=== PATIENT | female | born 1980 | race Caucasian/White ===

== ENCOUNTER 2016-06-04 09:38 | Day surgery (SDC) | payer BC ==
[~2016-06-04 09:38] MED LIST: LEXAPRO10 M2 PO; MOTRIN IB200 M1 PO; MULTIVITAMINS1 EAC6 PO; SYNTHROID150 MC1 PO
--- NOTE | 2016-06-04 13:55 | NUR ---
INCENTIVE SPIROMETRY NOT INDICATED, PT IS NOT A SMOKER AND LESS THAN 41 YEARS OLD.
[2016-06-05] MEDS ORDERED: PERCOCET 5-3251 EACH PO (08:57)
== END 2016-06-05 10:05 ==
LOC: WSU 09:38 → SHSB 09:39 → ORW 10:37 → PACU 12:11 → OBGF 13:35
PROC: 0UT94ZZ Resection of Uterus, Percutaneous Endoscopic Approach (ICD-10-PCS; principal; 2016-06-04)
PROC: 0UTC4ZZ Resection of Cervix, Percutaneous Endoscopic Approach (ICD-10-PCS; 2016-06-04)
PROC: 0UT74ZZ Resection of Bilateral Fallopian Tubes, Percutaneous Endoscopic Approach (ICD-10-PCS; 2016-06-04)
PROC: 8E0W4CZ Robotic Assisted Procedure of Trunk Region, Percutaneous Endoscopic Approach (ICD-10-PCS; 2016-06-04)
DX: Q51.2 Other doubling of uterus (principal); D25.1 Intramural leiomyoma of uterus; E03.9 Hypothyroidism, unspecified; F32.9 Major depressive disorder, single episode, unspecified; J45.909 Unspecified asthma, uncomplicated; Z79.899 Other long term (current) drug therapy; Z88.0 Allergy status to penicillin; Z88.1 Allergy status to other antibiotic agents; Z88.5 Allergy status to narcotic agent; Z90.49 Acquired absence of other specified parts of digestive tract; Z98.890 Other specified postprocedural states
CPT/HCPCS: J0690; J1170; J2250; J7030; J7121